=== PATIENT | female | born 1990 | race Caucasian/White ===

== ENCOUNTER 2016-10-09 13:42 | Emergency (ER) | payer OTHER ==
[~2016-10-09] VITALS: Ht 160 cm; Wt 86.2 kg
[2016-10-09 13:56] VITALS: BP 120/79
--- NOTE | 2016-10-09 14:02 | NUR ---
Patient ambulated to bed 5. RN evaluating patient at bedside.
--- NOTE | 2016-10-09 14:05 | NUR ---
PT PRESENTS TO ER W/C/O MID-BACK PAIN SINCE LAST NOC S/P MOVING FURNITURE. HX ASTHMA. DENIES N/V/D; SKIN IS PINK/WARM/DRY; AAOX4 WITH EVEN AND STEADY GAIT; LUNGS CLEAR BL; HR EVEN AND REGULAR; PT DENIES ANY FEVER, CP, SOB, OR COUGH AT THIS TIME; PATIENT STATES MID BACK PAIN OF 7/10 AT THIS TIME; VSS; PATIENT POSITIONED FOR COMFORT; HOB ELEVATED; BEDRAILS UP X2; BED DOWN. ER MD MADE AWARE OF PT STATUS.
[2016-10-09] MEDS ORDERED: KETOROLAC 30 MG/ML VIAL IM ONE (14:10)
[2016-10-09] MEDS ORDERED: DIAZEPAM 5 MG TAB PO ONE (14:10)
[2016-10-09 15:44] VITALS: BP 112/64
--- NOTE | 2016-10-09 15:44 | NUR ---
Patient discharged with v/s stable. Written and verbal after care instructions given and explained. Patient alert, oriented and verbalized understanding of instructions. Ambulatory with steady gait. All questions addressed prior to discharge. ID band removed. Patient advised to follow up with PMD. Rx of ROBAXIN, MOTRIN, MACROBID given. Patient educated on indication of medication including possible reaction and side effects. Opportunity to ask questions provided and answered.
== END 2016-10-09 15:44 | disposition home or self-care (01) ==
LOC: MED 13:42
DX: S39.012A Strain of muscle, fascia and tendon of lower back, initial encounter (principal); N30.90 Cystitis, unspecified without hematuria; X58.XXXA Exposure to other specified factors, initial encounter; Y93.89 Activity, other specified; Y92.89 Other specified places as the place of occurrence of the external cause; Y99.8 Other external cause status
CPT/HCPCS: 81002; 81025; 96372; 99283; J1885

== ENCOUNTER 2022-04-23 14:15 | Emergency (ER) | payer OTHER ==
[~2022-04-23] VITALS: Ht 162.6 cm; Wt 86.2 kg
--- NOTE | 2022-04-23 14:30 | NUR ---
TO ER BED 8
[2022-04-23 14:31] VITALS: BP 110/87
--- NOTE | 2022-04-23 15:02 | NUR ---
31 y/o F BIB self from home for allergic reaction since 0600. Patient A&Ox4, ambulatory, states rash began at 0600 today with tongue swelling onset 1300; rash began to bilateral arms and spread to neck, face, bilat legs, chest and back. States itchiness with symptoms; denies pain. States unknown cause and denies new introduction to personal hygiene, foods. Denies SOB, chest pain. Pt in gown and cardiac specialist with SpO2 97% on room air RR 12 even/unlabored; HR 103. Lung sounds CTA. Bed locked in lowest position, side rails x 1. PMH/Sx/Meds: Denies NKDA Addendum: 04/23/22 at 1505 by [facility] 31 y/o F BIB self from home for allergic reaction since 0600. Patient A&Ox4, ambulatory, states rash began at 0600 today with tongue swelling onset 1300; rash began to bilateral arms and spread to neck, face, bilat legs, chest and back. States itchiness with symptoms; denies pain. States unknown cause and denies new introduction to personal hygiene, foods. Denies SOB, chest pain. Pt in gown and cardiac specialist with SpO2 97% on room air RR 12 even/unlabored; HR 103. Lung sounds CTA. Bed locked in lowest position, side rails x 1. PMH/Sx/Meds: asthma - albuterol inhaler NKDA
--- NOTE | 2022-04-23 15:06 | NUR ---
Dr. Carlin evaluating patient at bedside
[2022-04-23] MEDS ORDERED: DEXAMETHASONE 10 MG/ML VIAL IVP ONE (15:10)
[2022-04-23] MEDS ORDERED: diphenhydrAMINE 50 MG/ML VIAL IVP ONE (15:10)
--- NOTE | 2022-04-23 16:25 | NUR ---
Jodie (sister) [phone] called; status update provided.
[2022-04-23 16:29] VITALS: BP 122/72
--- NOTE | 2022-04-23 16:29 | NUR ---
Patient states relief to tongue swelling and itchiness. States "I can breath so much better right now." school lunch monitor remains in place. Bed locked in lowest position, side rails x 1. NAD.
--- NOTE | 2022-04-23 17:41 | NUR ---
Patient discharged with v/s stable. Written and verbal after care instructions given and explained. Patient verbalized understanding. Ambulatory with steady gait. All questions addressed prior to discharge. Advised to follow up with PMD.
== END 2022-04-23 17:41 | disposition home or self-care (01) ==
LOC: MED 14:15
DX: L50.9 Urticaria, unspecified (principal); J45.909 Unspecified asthma, uncomplicated
CPT/HCPCS: 96374; 96375; 99284; J1100; J1200